=== PATIENT | female | born 1970 | race Caucasian/White ===

== ENCOUNTER 2023-02-16 05:56 | Day surgery (SDC) | payer OTHER ==
[2023-02-11 11:20] VITALS: BMI 41.2
[2023-02-11 11:48] LABS: Hemoglobin 12.5 g/dL (12.0-15.5); Mean Corpuscular HGB CONC 33.4 g/dL (32.0-36.0); Mean Corpuscular Hemoglobin 31.6 pg (27.0-33.0); Mean Corpuscular Volume 94.7 fl (81.6-98.3); Mean Platelet Volume 11.1 fl (7.4-10.4); Platelet Count 297 10x3/uL (150-450); RBC Distribution Width 11.9 % (11.5-14.5); Red Blood Cell (RBC) Count 3.95 10x6/uL (3.90-5.03); White Blood Cell (WBC) Count 6.5 10x3/uL (3.5-10.5)
[2023-02-11 12:14] LABS: BHCG - Serum Negative (NEGATIVE); Pregs Control Background? CLEAR/WHITE (CLR/WHITE); Pregs Control Bar Appear? YES (CONTROL BAR)
[2023-02-11 12:28] LABS: Anion Gap 17 mmol/L (10-20); BUN (Urea Nitrogen) 14 mg/dL (9.8-20.1); Calc. Creatinine Clearance 0 mL/min (70-130); Calcium 9.4 mg/dL (7.8-10.44); Carbon Dioxide 22 mmol/L (22-29); Chloride 106 mmol/L (98-107); Estimated GFR 73; Glucose 94 mg/dL (70-105); Potassium 4.7 mmol/L (3.5-5.1); Sodium 140 mmol/L (136-145)
[2023-02-16] MEDS ORDERED: Gabapentin 300 MG CAP ONE (06:31)
[2023-02-16] MEDS ORDERED: CeleCOXIB 100 MG CAP ONE (06:32)
[2023-02-16] MEDS ORDERED: Famotidine/PF 20 mg/2ml Vial ONE (06:32)
[2023-02-16] MEDS ORDERED: fentaNYL 50 mcg/mL 1 mL Vial ONE (06:39)
[2023-02-16] MEDS ORDERED: Midazolam HCl 2 mg/2 ml Vial ONE (06:39)
[2023-02-16] MEDS ORDERED: PROPOFOL 20 ML ONE (06:39)
[2023-02-16] MEDS ORDERED: Lidocaine 1% PF 5 ML VIAL ONE (06:40)
[2023-02-16] MEDS ORDERED: Dexamethasone 20 MG/5 ML VIAL ONE (06:40)
[2023-02-16] MEDS ORDERED: Ketorolac Tromethamine 30 MG/ML VIAL ONE (06:40)
[2023-02-16] MEDS ORDERED: Ondansetron PF 4 MG/2 ML Vial ONE (06:40)
[2023-02-16] MEDS ORDERED: CEFAZOLIN 2 GM VIAL ONE (07:27)
[2023-02-16] MEDS ORDERED: HYDROcodone/Acetaminophen 5/325 mg Tablet ONE (08:54)
== END 2023-02-16 09:42 | disposition home or self-care (01) ==
LOC: CSHSDC 05:56
PROVIDERS: ATTEND Obstetrics & Gynecology
PROC: 0UDB8ZZ Extraction of Endometrium, Via Natural or Artificial Opening Endoscopic (ICD-10-PCS; principal; 2023-02-16)
DX: N92.0 Excessive and frequent menstruation with regular cycle (principal); D64.9 Anemia, unspecified; I10 Essential (primary) hypertension; J45.909 Unspecified asthma, uncomplicated; E66.9 Obesity, unspecified; Z68.41 Body mass index [BMI] 40.0-44.9, adult; Z79.899 Other long term (current) drug therapy
CPT/HCPCS: 80048; 84703; 85027; 86850; 86900; 86901; 88305; J1100; J1885; J2250; J2405; J2704; J3010; S0028

== ENCOUNTER 2024-09-16 15:58 | Emergency (ER) | payer OTHER ==
[2024-09-16] MEDS ORDERED: diphenhydrAMINE 50 MG/ML VIAL ONE (16:57)
[2024-09-16] MEDS ORDERED: Ketorolac Tromethamine 30 MG (1 mL) VIAL ONE (16:58)
[2024-09-16] MEDS ORDERED: Metoclopramide HCl 10 MG (2 mL) VIAL ONE (16:58)
[2024-09-16] MEDS ORDERED: Ondansetron PF 4 MG/2 ML Vial ONE (16:58)
== END 2024-09-16 17:38 | disposition home or self-care (01) ==
LOC: CSHERS 15:58
DX: M54.81 Occipital neuralgia (principal); F17.290 Nicotine dependence, other tobacco product, uncomplicated; Z55.6 Problems related to health literacy; Z75.3 Unavailability and inaccessibility of health-care facilities
CPT/HCPCS: 96372; 99283; J1200; J1885; J2405; J2765